=== PATIENT | male | born 1985 | race Caucasian/White ===

== ENCOUNTER → 2016-04-21 | Outpatient (CLI) | payer SELFPAY ==
[~2016-04-21] VITALS: Ht 167.6 cm; Wt 54.0 kg
[~2016-04-21] MED LIST: INSULIN HUMAN REGULAR 1,000 UNITS/10 ML VIAL SQ PRN; LACTATED RINGER'S 1000 ML IV SCH; LACTCAP8 PO; METOPROLOL TARTRATE 25 MG TAB PO PRN; MULT1TAB84 PO; PROPOFOL 200 MG/20 ML AMP IV ONE; SODIUM CHLORID 0.9% 500 ML IV SCH
[2016-04-21 08:51] VITALS: BP 107/65; PULSE 90; RESP 16; TEMP 99.2; O2SAT 99
--- NOTE | 2016-04-21 08:58 | PD.HP.UP ---
H&P Update Note The Pre-Admit History and Physical Examination regarding the above named patient was reviewed (including, but not limited to, vital signs, heart, lungs, co-morbid conditions), and upon re-examination it is noted that: the patient's condition has not significantly changed since the last examination. Neil Rangel MD Apr 21, 2016 08:58
--- NOTE | 2016-04-23 05:47 | MR ---
cc: MILY NORIEGA M.D. DATE April 21, 2016 PREOPERATIVE DIAGNOSES 1. Pouchitis. 2. Stricture ileoanal anastomosis. PROCEDURE Exam under anesthesia with dilatation of ileoanal anastomosis and ileoscopy. POSTOPERATIVE DIAGNOSES 1. Stricture of ileoanal anastomosis. 2. Pouchitis. SURGEON Dr. Noriega PROCEDURE The patient was placed in the left lateral decubitus position. Rectal exam confirmed very tight inflammatory type narrowing and stricturing of his ileocolonic anastomosis. This was able to be gently dilated with digital with palpation. The Olympus pediatric colonoscope was then introduced under direct vision through the stricture and into the pouch. There did appear to be mild granularity and nonspecific inflammation of the pouch. Several superficial ulcerations were present. Also at some point appeared to be some cobblestoning of the mucosa. The afferent limb was somewhat difficult to intubate. The colonoscope was therefore gradually withdrawn noting the inflammatory changes around the distal anastomosis. A little bit of bleeding was noted as well. The patient tolerated the procedure quite well and was brought to the recovery room in stable condition. MD ANA CRISTINA Mckeon/CADEN /11:30 PM /5:30 AM
== END ==
LOC: HEND 07:58
PROVIDERS: ATTEND Colon & Rectal Surgery
DX: K91.850 Pouchitis (principal); K62.4 Stenosis of anus and rectum